=== PATIENT | male | born 1995 | race Caucasian/White ===

== ENCOUNTER 2024-05-18 21:44 | Emergency (ER) | payer OTHER ==
[~2024-05-18] VITALS: Ht 180.3 cm; Wt 90.9 kg
[2024-05-18 21:56] VITALS: TEMP 97.7
[2024-05-18] MEDS ORDERED: PANT-31 PO (22:00)
[2024-05-18 23:00] VITALS: BP 132/83; PULSE 95; RESP 20; O2SAT 100
[2024-05-18] MEDS: IBUPROFEN 400 MG TABLET PO ONE (23:49)
[2024-05-18] MEDS: CEPHALEXIN MONOHYDRATE 500 MG CAPSULE PO ONE (23:49)
[2024-05-18] MEDS: DOXYCYCLINE HYCLATE 100 MG TABLET PO ONE (23:49)
[2024-05-18] MEDS: ACETAMINOPHEN 325 MG TABLET PO ONE (23:49)
== END 2024-05-19 00:17 ==
LOC: EMS 21:44
DX: L03.116 Cellulitis of left lower limb (principal); F15.90 Other stimulant use, unspecified, uncomplicated; Z87.891 Personal history of nicotine dependence; Z79.899 Other long term (current) drug therapy; Z87.19 Personal history of other diseases of the digestive system; Z88.0 Allergy status to penicillin
CPT/HCPCS: 99284; Z7502; Z7610